=== PATIENT | male | born 1995 | race Caucasian/White ===

== ENCOUNTER 2016-12-28 00:04 | Emergency (ER) | payer SELFPAY ==
[2016-12-28 00:38] VITALS: O2SAT 100
[2016-12-28] MEDS ORDERED: Sodium Chloride 0.9% 1,000 ML IV ONE (01:00)
[2016-12-28] MEDS ORDERED: Sodium Chloride 0.9% 1,000 ML ONE (01:09)
--- NOTE | 2016-12-28 01:16 | C.PDOC ---
History Of Present Illness Patient is a 21 y/o male who presents to the ED with complaints of left-sided CP and a cough with occasional sputum for the last two days. 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 Patient denies fever or SOB. No other physical complaints at this time. Chief Complaint (Nursing): Chest Pain History Per: Patient Onset/Duration Of Symptoms: Days (x2 days) Current Symptoms Are (Timing): Worse Associated Symptoms: Nausea Recent travel outside of the [place]: No Additional History Per: Patient Past Medical History Reviewed: Historical Data, Nursing Documentation, Vital Signs Vital Signs: Last Vital Signs Temp 98.4 F 12/28/16 00:30 Pulse 93 H 12/28/16 01:52 Resp 15 12/28/16 01:52 BP 133/87 12/28/16 01:52 Pulse Ox 100 12/28/16 02:51 - Medical History PMH: Asthma Surgical History: Tonsillectomy - [facility] Procedures TETANUS TOXOID ADMINIST (11/28/13) Family History: States: Unknown Family Hx - Social History Hx Tobacco Use: Yes Hx Alcohol Use: Yes Hx Substance Use: No - Immunization History Hx Tetanus Toxoid Vaccination: No Hx Influenza Vaccination: No Hx Pneumococcal Vaccination: No Review Of Systems Constitutional: Negative for: Fever Cardiovascular: Positive for: Chest Pain (left sided), Light Headedness Respiratory: Positive for: Cough (occasional sputum). Negative for: Shortness of Breath Gastrointestinal: Positive for: Nausea, Vomiting (x1 ENTERTAINMENT PRODUCTION PROFESSIONAL) Physical Exam - Physical Exam Appears: Well, Non-toxic, No Acute Distress Skin: Normal Color, Warm, Dry Head: Atraumatic, Normacephalic Oral Mucosa: Moist Chest: Symmetrical, Tenderness (left side chest wall) Cardiovascular: Rhythm Regular, No Murmur Respiratory: Normal Breath Sounds, No Rales, No Rhonchi, No Wheezing Neurological/Psych: Oriented x3, Normal Speech, Normal Cognition, Other (no focal deficits) ED Course And Treatment - Laboratory Results Result Diagrams: 12/28/16 01:10 12/28/16 01:10 ECG: Interpreted By Me, Viewed By Me ECG Rhythm: Sinus Rhythm ECG Interpretation: Normal, No Acute Changes Interpretation Of ECG: NSR, no acute changes, borderline tracings. O2 Sat by Pulse Oximetry: 100 (room air) Pulse Ox Interpretation: Normal - Radiology CXR: Interpreted by Me, Viewed By Me CXR Interpretation: Yes: No Acute Disease, Other (normal chest film). No: Infiltrates Progress Note: Plan: EKG and CXR ordered; Toradol and IV fluids administered. Disposition Counseled Patient/Family Regarding: Diagnosis - Disposition Referrals: [facility] [Outside] Disposition Time: 02:49 Condition: STABLE Prescriptions: Naproxen 375 mg PO TIDPC #20 tablet Instructions: Chest Wall Pain (ED) Forms: [employer] (Filipino) - POA Present On Arrival: None - Clinical Impression Clinical Impression: Chest wall pain - Scribe Statement The provider has reviewed the documentation as recorded by the Scribe Letty Hansen All medical record entries made by the Scribe were at my direction and personally dictated by me. I have reviewed the chart and agree that the record accurately reflects my personal performance of the history, physical exam, medical decision making, and the department course for this patient. I have also personally directed, reviewed, and agree with the discharge instructions and disposition.
[2016-12-28 01:22] LABS: BASO # 0.1 K/uL (0.0-0.2); BASO % 0.8 % (0.0-2.0); EOS # 0.1 K/uL (0.0-0.7); EOS % 0.7 % (0.0-4.0); HEMATOCRIT 46.5 % (35.0-51.0); LYMPH # 2.4 K/uL (1.0-4.3); LYMPH % 26.4 % (20.0-40.0); MEAN CELL VOLUME 83.5 fL (80.0-94.0); MEAN CORPUSCULAR HGB CONC 33.5 g/dL (33.0-37.0); MEAN PLATELET VOLUME 7.7 fL (7.2-11.7); MONO # 0.7 K/uL (0.0-0.8); MONO % 7.5 % (0.0-10.0); NRBC % 0.1 % (0.0-2.0); RED CELL DISTRIBUTION WIDTH 13.4 % (11.5-14.5); WHITE BLOOD COUNT 9.1 K/uL (4.8-10.8)
[2016-12-28 01:25] LABS: CHLORIDE 97 mmol/L (98-107); POTASSIUM 3.6 mmol/L (3.6-5.2); SODIUM 138 mmol/L (132-148)
[2016-12-28 01:27] LABS: GFR AFRICAN-AMERICAN > 60
[2016-12-28 01:28] LABS: ALB/GLOB RATIO 1.2 (1.0-2.1); ALKALINE PHOSPHATASE 53 U/L (38-126); ALT/SGPT 52 U/L (21-72); AST/SGOT 34 U/L (17-59); BILIRUBIN,TOTAL 0.6 mg/dL (0.2-1.3); BLOOD UREA NITROGEN 10 mg/dL (9-20); CARBON DIOXIDE 28 mmol/L (22-30); GLUCOSE,RANDOM 85 mg/dL (75-110); TOTAL PROTEIN 8.2 g/dL (6.3-8.3)
[2016-12-28 01:29] LABS: CALCIUM 9.1 mg/dl (8.6-10.4)
[2016-12-28 03:06] VITALS: BP 133/86; PULSE 79; RESP 12; TEMP 98.9
--- NOTE | 2016-12-28 08:50 | RAD ---
HISTORY: chest pain COMPARISON: 06/21/2012 TECHNIQUE: Chest PA and lateral FINDINGS: LUNGS: No focal infiltrate or effusion. Patchy increased markings at the lung bases ; right greater than left likely represents prominent vasculature. PLEURA: No significant pleural effusion identified. No pneumothorax apparent. CARDIOVASCULAR: Normal. OSSEOUS STRUCTURES: No significant abnormalities. VISUALIZED UPPER ABDOMEN: Normal. OTHER FINDINGS: None. IMPRESSION: No focal infiltrate or effusion. Patchy increased markings at the lung bases ; right greater than left likely represents prominent vasculature.
--- NOTE | 2016-12-31 18:45 | CARD ---
APPROVED REPORT EKG Measurement Heart [id number] <Conclusion> Normal sinus rhythm Possible Left atrial enlargement Borderline ECG
== END 2016-12-28 03:08 | disposition home or self-care (01) ==
LOC: C.ER 00:04
DX: R07.89 Other chest pain (principal)
CPT/HCPCS: 71020; 80053; 84484; 85025; 85378; 93005; 96374; 99285; J1885; J7040

== ENCOUNTER 2018-06-09 21:59 | Emergency (ER) | payer OTHER ==
[2018-06-09 22:10] VITALS: O2SAT 99
--- NOTE | 2018-06-09 22:33 | C.PDOC ---
History Of Present Illness 23 year old male presents to the ED for evaluation of mid-sternal chest pain which began around one hour prior to arrival. Patient describes his chest pain as a stabbing sensation that is worse with movement of his arm and with pressing down on his chest. Patient states the chest pain has been intermittent for the past 5 moths. Patient also complains of a headache which began one week ago, associated with sinus congestion which began 3 days ago. Patient denies fever, chills, neck stiffness, shortness of breath, denies sudden onset of headache, denies worst headache of life, or extremity numbness/tingling at this time. <Moi Palafox - Last Filed: 06/10/18 00:41> History Per: Patient History/Exam Limitations: no limitations Onset/Duration Of Symptoms: Days Current Symptoms Are (Timing): Still Present Quality: "Pain" <Moi Palafox - Last Filed: 06/10/18 00:41> <Luann Vickers - Last Filed: 06/10/18 01:49> Time Seen by Provider: 06/09/18 22:33 Chief Complaint (Nursing): Headache Past Medical History Reviewed: Historical Data, Nursing Documentation, Vital Signs Vital Signs: Last Vital Signs Temp 98.3 F 06/09/18 22:08 Pulse 110 H 06/09/18 22:08 Resp 16 06/09/18 22:08 BP 131/86 06/09/18 22:08 Pulse Ox 99 06/09/18 22:08 - Medical History PMH: Asthma Surgical History: Tonsillectomy - [facility] Procedures TETANUS TOXOID ADMINIST (11/28/13) Family History: States: Unknown Family Hx - Social History Hx Tobacco Use: Yes Hx Alcohol Use: Yes Hx Substance Use: No - Immunization History Hx Tetanus Toxoid Vaccination: No Hx Influenza Vaccination: No Hx Pneumococcal Vaccination: No <Moi Palafox - Last Filed: 06/10/18 00:41> Vital Signs: Last Vital Signs Temp 98.1 F 06/09/18 23:37 Pulse 94 H 06/09/18 23:37 Resp 20 06/09/18 23:37 BP 131/75 06/09/18 23:37 Pulse Ox 99 06/10/18 00:42 - [facility] Procedures TETANUS TOXOID ADMINIST (11/28/13) <Luann Vickers - Last Filed: 06/10/18 01:49> Review Of Systems Constitutional: Negative for: Fever, Chills Cardiovascular: Positive for: Chest Pain Respiratory: Negative for: Shortness of Breath Neurological: Positive for: Headache. Negative for: Weakness, Numbness <Moi Palafox - Last Filed: 06/10/18 00:41> Physical Exam - Physical Exam Appears: Non-toxic, No Acute Distress Skin: Normal Color, Warm, Dry Head: Atraumatic, Normacephalic Eye(s): bilateral: Normal Inspection Oral Mucosa: Moist Neck: Supple, Other (no meningeal signs ) Chest: Symmetrical, No Deformity, No Tenderness Cardiovascular: Rhythm Regular, No Murmur Respiratory: Normal Breath Sounds, No Rales, No Rhonchi, No Wheezing Extremity: Normal ROM, Capillary Refill (less than 2 seconds ) Neurological/Psych: Oriented x3, Normal Speech, Normal Cognition, Other (no focal deficits ) <VivienneMoi Last Filed: 06/10/18 00:41> ED Course And Treatment - Laboratory Results Result Diagrams: 06/09/18 23:31 06/09/18 23:31 O2 Sat by Pulse Oximetry: 99 (on RA) Pulse Ox Interpretation: Normal <VivienneMoi - Last Filed: 06/10/18 00:41> - Laboratory Results Result Diagrams: 06/09/18 23:31 06/09/18 23:31 Lab Results: Total Bilirubin 0.3 mg/dL (0.2-1.3) 06/09/18 23:31 AST 47 U/L (17-59) 06/09/18 23:31 ALT 50 U/L (21-72) 06/09/18 23:31 Alkaline Phosphatase 64 U/L (38-126) 06/09/18 23:31 Total Protein 7.4 g/dL (6.3-8.3) 06/09/18 23:31 Albumin 4.4 g/dL (3.5-5.0) 06/09/18 23:31 Globulin 3.0 gm/dL (2.2-3.9) 06/09/18 23:31 Albumin/Globulin Ratio 1.5 (1.0-2.1) 06/09/18 23:31 <Luann Vickers - Last Filed: 03/25/19 01:49> Medical Decision Making Medical Decision Making: Progress: Bloodwork, CT Head, CXR, and EKG ordered and reviewed. Motrin PO given. EK, sinus tachy, no stemi 0100 CXR unremarkable, labs unremarkable signed out to DR. Vickers pending CT results <Moi Palafox - Last Filed: 06/10/18 00:41> Disposition <Moi Palafox - Last Filed: 06/10/18 00:41> Counseled Patient/Family Regarding: Studies Performed, Diagnosis, Need For Followup - Disposition Disposition Time: 01:48 <Luann Vickers - Last Filed: 06/10/18 01:49> - Disposition Referrals: Teo Hardy MD [Medical Doctor] - Disposition: HOME/ ROUTINE Condition: STABLE Additional Instructions: LUCRECIA RIOS, thank you for letting us take care of you today. The [facility] medical care you received today was directed at your acute symptoms. If you were prescribed any medication, please fill it and take as directed. It may take several days for your symptoms to resolve. Return to the Emergency Department if your symptoms worsen, do not improve, or if you have any other problems. Please contact your doctor for a follow up appointment in 1-2 days. Bring any paperwork you were given at discharge with you along with any medications you are taking to your follow up visit. Our treatment cannot replace ongoing medical care by a primary care provider outside of the emergency department. Thank you for allowing the [facility] team to be part of your care today. If you had an X-Ray or CT scan: A Radiologist will review the ED reading if any change in treatment is needed we will contact you. If you had a blood, urine, or wound culture: It will take several days for the results, if any change in treatment is needed we will contact you. If you had an STI test: It will take 48 hours for the results. Please call after 1 week if you have not heard back. Instructions: Headache, Adult (DC) Forms: [employer] (Pashto), General Discharge Instructions - Clinical Impression Clinical Impression: Headache - Scribe Statement The provider has reviewed the documentation as recorded by the Scribe (Adwoa Stout) Provider Attestation: All medical record entries made by the Scribe were at my direction and personally dictated by me. I have reviewed the chart and agree that the record accurately reflects my personal performance of the history, physical exam, medical decision making, and the department course for this patient. I have also personally directed, reviewed, and agree with the discharge instructions and disposition. <Moi Palafox - Last Filed: 06/10/18 00:41>
[2018-06-09 23:34] LABS: BASO # 0.1 K/uL (0.0-0.2); BASO % 0.8 % (0.0-2.0); EOS # 0.1 K/uL (0.0-0.7); EOS % 0.9 % (0.0-4.0); HEMOGLOBIN 14.9 g/dL (12.0-18.0); LYMPH # 2.2 K/uL (1.0-4.3); LYMPH % 34.5 % (20.0-40.0); MEAN CELL VOLUME 83.5 fL (80.0-94.0); MEAN CORPUSCULAR HGB CONC 33.6 g/dL (33.0-37.0); MONO # 0.6 K/uL (0.0-0.8); MONO % 9.6 % (0.0-10.0); NEUT # 3.5 K/uL (1.8-7.0); NEUT % 54.2 % (50.0-75.0); NRBC % 0.1 % (0.0-2.0); RBC 5.33 Mil/uL (4.40-5.90); RED CELL DISTRIBUTION WIDTH 12.8 % (11.5-14.5); WHITE BLOOD COUNT 6.4 K/uL (4.8-10.8)
[2018-06-09 23:38] VITALS: BP 131/75; PULSE 94; RESP 20; TEMP 98.1
[2018-06-09 23:46] LABS: ALB/GLOB RATIO 1.5 (1.0-2.1); ALBUMIN 4.4 g/dL (3.5-5.0); ALT/SGPT 50 U/L (21-72); AST/SGOT 47 U/L (17-59); BLOOD UREA NITROGEN 18 mg/dL (9-20); GFR NON-AFRICAN AMERICAN > 60
--- NOTE | 2018-06-10 08:48 | RAD ---
Date of service: 06/09/2018 HISTORY: cp COMPARISON: Comparison chest dated 12/28/2016. TECHNIQUE: Chest PA and lateral FINDINGS: LUNGS: No active pulmonary disease. PLEURA: No significant pleural effusion identified. No pneumothorax apparent. CARDIOVASCULAR: No aortic atherosclerotic calcification present. Normal cardiac size. No pulmonary vascular congestion. OSSEOUS STRUCTURES: No significant abnormalities. VISUALIZED UPPER ABDOMEN: Normal. OTHER FINDINGS: None. IMPRESSION: No active disease.
--- NOTE | 2018-06-10 09:28 | CT ---
Date of service: 06/10/2018 PROCEDURE: CT HEAD WITHOUT CONTRAST. HISTORY: Headache COMPARISON: None available. TECHNIQUE: Axial computed tomography images were obtained through the head/brain without intravenous contrast. Radiation dose: Total exam DLP = 1169.54 mGy-cm. This CT exam was performed using one or more of the following dose reduction techniques: Automated exposure control, adjustment of the mA and/or kV according to patient size, and/or use of iterative reconstruction technique. FINDINGS: HEMORRHAGE: No intracranial hemorrhage. BRAIN: No mass effect or edema. No atrophy or chronic microvascular ischemic changes. VENTRICLES: No obstructive hydrocephalus. CALVARIUM: Unremarkable. PARANASAL SINUSES: There is mild-moderate mucosal thickening within the ethmoid air complex extending superiorly into the frontal sinus. There is also mild mucosal thickening right maxillary antrum and minimal mucosal thickening left maxillary antrum tiny fluid level left maxillary antrum not excluded MASTOID AIR CELLS: Unremarkable as visualized. No inflammatory changes. OTHER FINDINGS: None. IMPRESSION: No acute intracranial hemorrhage. Mucoperiosteal inflammatory changes within the aforementioned paranasal sinuses as detailed above
== END 2018-06-10 02:06 | disposition home or self-care (01) ==
LOC: C.ER 21:59
DX: R51 Headache (principal)

== ENCOUNTER 2018-06-14 00:37 | Emergency (ER) | payer OTHER ==
--- NOTE | 2018-06-14 00:56 | C.PDOC ---
History Of Present Illness 23 year old male presents to the ED for evaluation of chest pain and left shoulder pain which have been intermittent for around 5 months. Patient was evaluated in this ED for similar complaint 5 days ago. Patient was instructed to follow up with his PMD. 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 He returns to the ED today because his pain has persisted. He denies fever, chills, headache, sinus congestion, known trauma/injury, extremity numbness/weakness. Time Seen by Provider: 06/14/18 00:47 Chief Complaint (Nursing): Upper Extremity Problem/Injury History Per: Patient History/Exam Limitations: no limitations Onset/Duration Of Symptoms: Intermittent Episodes, Persistent, Other (5 months ) Quality: "Pain" Additional History Per: Patient Past Medical History Reviewed: Historical Data, Nursing Documentation, Vital Signs Vital Signs: Last Vital Signs Temp 99.1 F 06/14/18 00:41 Pulse 87 06/14/18 00:41 Resp BP 152/80 H 06/14/18 00:41 Pulse Ox 95 06/14/18 00:41 - Medical History PMH: Asthma Surgical History: Tonsillectomy - [facility] Procedures TETANUS TOXOID ADMINIST (11/28/13) Family History: States: Unknown Family Hx - Social History Hx Tobacco Use: Yes Hx Alcohol Use: Yes Hx Substance Use: No - Immunization History Hx Tetanus Toxoid Vaccination: No Hx Influenza Vaccination: No Hx Pneumococcal Vaccination: No Review Of Systems Constitutional: Negative for: Fever, Chills, Sweats, Weakness, Malaise, Weight loss Eyes: Negative for: Pain, Vision Change, Eyelid Inflammation ENT: Negative for: Ear Pain, Ear Discharge, Nose Pain, Nose Congestion, Mouth Pain, Throat Pain, Throat Swelling, Other (sinus congestion) Cardiovascular: Positive for: Chest Pain. Negative for: Palpitations, Orthopn ea, Edema, Light Headedness Respiratory: Negative for: Cough, Shortness of Breath, Hemoptysis, SOB with Excertion, Pleuritic Pain, Wheezing Gastrointestinal: Negative for: Nausea, Vomiting, Abdominal Pain, Diarrhea, Constipation, Melena, Hematochezia, Hematemesis Genitourinary: Negative for: Dysuria, Frequency, Incontinence, Hematuria, Penile Discharge, Scrotal Pain, Rash Musculoskeletal: Positive for: Shoulder Pain (left, atraumatic ). Negative for: Neck Pain, Back Pain Neurological: Negative for: Weakness, Numbness, Headache Physical Exam - Physical Exam Appears: Well, Non-toxic, No Acute Distress Skin: Normal Color, Warm, Dry Head: Atraumatic, Normacephalic Eye(s): bilateral: Normal Inspection, PERRL, EOMI Ear(s): Bilateral: Normal Nose: Normal Oral Mucosa: Moist Tongue: Normal Appearing Lips: Normal Appearing Gingiva: Normal Appearing Throat: Normal, No Erythema, No Exudate Neck: Normal ROM, Supple, Other (no meningeal signs) Lymphatic: Normal Exam, No Adenopathy Chest: Symmetrical, No Deformity, No Tenderness Cardiovascular: Rhythm Regular, No Murmur Respiratory: Normal Breath Sounds, No Decreased Breath Sounds, No Accessory Muscle Use, No Rales, No Rhonchi, No Stridor, No Wheezing, No Plerual Rub Gastrointestinal/Abdominal: Normal Exam, Soft, No Tenderness, No Guarding, No Rebound Back: Normal Inspection, No CVA Tenderness, No Vertebral Tenderness Extremity: Normal ROM, No Tenderness, Capillary Refill (less than 2 seconds ), No Deformity, No Swelling Pulses: Right Radial: Normal, Right Femoral: Normal Neurological/Psych: Oriented x3, Normal Speech, Normal Cognition, Normal Motor, Normal Sensation Gait: Steady ED Course And Treatment - Laboratory Results Result Diagrams: 06/14/18 01:20 06/14/18 01:20 O2 Sat by Pulse Oximetry: 95 (on RA) Pulse Ox Interpretation: Normal Medical Decision Making Medical Decision Making: Impression 23 year old male with chest pain and left shoulder pain. Seen previously for similiar complaint. 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 No fall or trauma. Intermittent likely MSK pain x5 months seen multiple times. Likely MSK given pt notes that he has been lifting more weights recently. Fully n/v intact in b/l UE Differential diagnoses include but are not limited to: PE vs chest wall pain Progress: EKG 80, NSR, No stemi labs, CXR unremarkable Pending CTA 1643 imaging unremarkable pt notes improved pain clear for d/c home with return indications remains n/v intact in b/l UE endorsed to pt to take otc motrin at home. he is agreeable. Disposition - Disposition Referrals: [facility] [Outside] [facility] [Outside] [facility] [Outside] Edgar Babin MD [Staff Provider] - Disposition: HOME/ ROUTINE Disposition Time: 04:45 Condition: STABLE Additional Instructions: LUCRECIA RIOS, thank you for letting us take care of you today. Your provider was Moi Palafox and you were treated for SHOULDER PAIN. The emergency medical care you received today was directed at your acute symptoms. If you were prescribed any medication, please fill it and take as directed. It may take several days for your symptoms to resolve. Return to the Emergency Department if your symptoms worsen, do not improve, or if you have any other problems. Please contact your doctor or call one of the physicians/clinics you have been referred to that are listed on the Patient Visit Information form that is included in your discharge packet. Bring any paperwork you were given at discharge with you along with any medications you are taking to your follow up visit. Our treatment cannot replace ongoing medical care by a primary care provider outside of the emergency department. Thank you for allowing the [facility] team to be part of your care today. If you had an X-Ray or CT scan: A Radiologist will review the ED reading if any change in treatment is needed we will contact you. If you had a blood, urine, or wound culture: It will take several days for the results, if any change in treatment is needed we will contact you. If you had an STI test: It will take 48 hours for the results. Please call after 1 week if you have not heard back. Instructions: Chest Pain (DC) Forms: [employer] (Montenegrin) - Clinical Impression Clinical Impression: Chest pain - Scribe Statement The provider has reviewed the documentation as recorded by the Scribe (Adwoa Stout) Provider Attestation: All medical record entries made by the Scribe were at my direction and personally dictated by me. I have reviewed the chart and agree that the record accurately reflects my personal performance of the history, physical exam, medical decision making, and the department course for this patient. I have also personally directed, reviewed, and agree with the discharge instructions and disposition.
[2018-06-14] MEDS ORDERED: Iodixanol 320 MG/ML 100 ML BOTTLE IV ONE (01:07)
[2018-06-14 01:32] LABS: BASO % 0.7 % (0.0-2.0); EOS % 0.8 % (0.0-4.0); HEMOGLOBIN 15.6 g/dL (12.0-18.0); LYMPH # 1.8 K/uL (1.0-4.3); MEAN CELL VOLUME 83.6 fL (80.0-94.0); MEAN CORPUSCULAR HEMOGLOBIN 28.2 pg (27.0-31.0); MEAN CORPUSCULAR HGB CONC 33.7 g/dL (33.0-37.0); MEAN PLATELET VOLUME 7.2 fL (7.2-11.7); MONO # 0.4 K/uL (0.0-0.8); MONO % 7.3 % (0.0-10.0); NEUT # 3.7 K/uL (1.8-7.0); NEUT % 61.2 % (50.0-75.0); RBC 5.54 Mil/uL (4.40-5.90); RED CELL DISTRIBUTION WIDTH 12.9 % (11.5-14.5); WHITE BLOOD COUNT 6.1 K/uL (4.8-10.8)
[2018-06-14 01:52] LABS: ALB/GLOB RATIO 1.6 (1.0-2.1); ALBUMIN 4.7 g/dL (3.5-5.0); ALT/SGPT 36 U/L (21-72); AST/SGOT 44 U/L (17-59); BLOOD UREA NITROGEN 13 mg/dL (9-20); CALCIUM 9.3 mg/dl (8.6-10.4); GFR NON-AFRICAN AMERICAN > 60
[2018-06-14] MEDS ORDERED: Iodixanol 320 mg/ml 150 ml Bottle IV ONE ×2 (03:17→03:41)
[2018-06-14 04:58] VITALS: BP 140/80; PULSE 82; RESP 20; TEMP 99; O2SAT 98
--- NOTE | 2018-06-14 09:59 | CT ---
Date of service: 06/14/2018 PROCEDURE: CT Chest with contrast (Pulmonary Angiogram) HISTORY: cp COMPARISON: None available. TECHNIQUE: Axial computed tomography images were obtained of the chest in the pulmonary arterial phase of enhancement. Coronal and sagittal reformatted images were created and reviewed. Intravenous contrast dose: 100 mL of Visipaque 320 intravenously Radiation dose: Total exam DLP = 1236.33 mGy-cm. This CT exam was performed using one or more of the following dose reduction techniques: Automated exposure control, adjustment of the mA and/or kV according to patient size, and/or use of iterative reconstruction technique. FINDINGS: PULMONARY ARTERIES: Suboptimal study. No pulmonary embolism. AORTA: No acute findings. No thoracic aortic aneurysm. No aortic atherosclerotic calcification or mural plaque present. LUNGS: Unremarkable. No nodule, mass or pulmonary consolidation. PLEURAL SPACES: Unremarkable. No effusion or pneumothorax. HEART: Unremarkable. No cardiomegaly. No significant pericardial effusion. LYMPH NODES: No lymphadenopathy. BONES, CHEST WALL: Unremarkable. No fracture or destructive lesion OTHER FINDINGS: There is partially imaged focal low attenuation at the caudate liver lobe noted new compared to the prior CT dated 06/01/2012. Clinically warranted further assessment by ultrasound is suggested. IMPRESSION: Suboptimal study, no evidence of central pulmonary embolus. No evidence of acute pulmonary disease. Partially imaged low-attenuation focus noted at liver caudate lobe of uncertain etiology. If clinically warranted further assessment by ultrasound is suggested. Preliminary report was submitted by [facility] Radiology contains concordant findings.
--- NOTE | 2018-06-14 10:23 | RAD ---
Date of service: 06/14/2018 PROCEDURE: Radiographs of the Left Shoulder HISTORY: l shoulder pain COMPARISON: No prior. TECHNIQUE: 3 views obtained. FINDINGS: BONES: Normal. No fracture. JOINTS: Normal. Glenohumeral and acromioclavicular joints preserved. No osteoarthritis. SOFT TISSUES: Normal. OTHER FINDINGS: None. IMPRESSION: Normal radiographs of the left shoulder.
--- NOTE | 2018-06-17 15:01 | CARD ---
APPROVED REPORT Date of service: 06/14/2018 EKG Measurement Heart [id number] <Conclusion> Normal sinus rhythm Normal ECG
== END 2018-06-14 04:56 | disposition home or self-care (01) ==
LOC: C.ER 00:37
DX: R07.9 Chest pain, unspecified (principal)
CPT/HCPCS: 71275; 73030; 80053; 84484; 85025; 93005; 96374; 99283; J1885; Q9967

== ENCOUNTER 2018-06-30 16:02 | Emergency (ER) | payer OTHER ==
[2018-06-30] MEDS ORDERED: Sodium Chloride 0.9% 1,000 ML IV ONE (16:26)
--- NOTE | 2018-06-30 16:30 | C.PDOC ---
History Of Present Illness CC: Palpitations. Patient presented with palpiations since thi morning, heaviness in L. chest and arm. Was drinking ETOH last night, no drug use. Time Seen by Provider: 06/30/18 16:19 Chief Complaint (Nursing): Palpitations History Per: Patient History/Exam Limitations: no limitations Onset/Duration Of Symptoms: Hrs (5) Current Symptoms Are (Timing): Still Present Severity: Mild Pain Scale Rating Of: 4 Quality: Tightness Associated Symptoms: denies: Dyspnea, Diaphoresis, Syncope Exacerbating Factors: None Alleviating Factors: None Past Medical History Reviewed: Historical Data, Nursing Documentation, Vital Signs Vital Signs: Last Vital Signs Temp 99.5 F 06/30/18 16:08 Pulse 108 H 06/30/18 16:08 Resp 20 06/30/18 16:08 BP 150/88 06/30/18 16:08 Pulse Ox 100 06/30/18 16:08 - Medical History PMH: Asthma Surgical History: Tonsillectomy - [facility] Procedures TETANUS TOXOID ADMINIST (11/28/13) Family History: States: No Known Family Hx - Social History Hx Tobacco Use: Yes Hx Alcohol Use: Yes Hx Substance Use: No - Immunization History Hx Tetanus Toxoid Vaccination: No Hx Influenza Vaccination: No Hx Pneumococcal Vaccination: No Review Of Systems Except As Marked, All Systems Reviewed And Found Negative. Cardiovascular: Positive for: Chest Pain, Palpitations. Negative for: Orthopnea Respiratory: Negative for: Shortness of Breath Physical Exam - Physical Exam Appears: Well Skin: Normal Color Head: Atraumatic Eye(s): bilateral: Normal Inspection, PERRL, EOMI Nose: Normal Oral Mucosa: Moist Tongue: Normal Appearing Lips: Normal Appearing Teeth: Normal Dentition Throat: Normal Neck: Normal Lymphatic: Deferred Chest: Symmetrical Cardiovascular: Rhythm Regular, No Edema Gastrointestinal/Abdominal: Normal Exam, Soft, No Tenderness, No Distention Extremity: Normal ROM, No Pedal Edema ED Course And Treatment - Laboratory Results Result Diagrams: 06/30/18 16:54 06/30/18 16:54 O2 Sat by Pulse Oximetry: 100 (RA) Pulse Ox Interpretation: Normal Medical Decision Making Medical Decision Making: Plan: --EKG --Labs --IV fluids Disposition Counseled Patient/Family Regarding: Diagnosis, Need For Followup - Disposition Disposition: HOME/ ROUTINE Disposition Time: 18:16 Condition: STABLE Instructions: Chest Pain, Palpitations Forms: [facility] (Tajik), General Discharge Instructions, Work Excuse - POA Present On Arrival: None - Clinical Impression Clinical Impression: Chest pain, Palpitations
[2018-06-30 16:58] LABS: BASO # 0.1 K/uL (0.0-0.2); BASO % 0.8 % (0.0-2.0); EOS % 0.5 % (0.0-4.0); HEMOGLOBIN 15.1 g/dL (12.0-18.0); LYMPH # 2.3 K/uL (1.0-4.3); MEAN CELL VOLUME 83.5 fL (80.0-94.0); MEAN CORPUSCULAR HEMOGLOBIN 27.9 pg (27.0-31.0); MEAN CORPUSCULAR HGB CONC 33.4 g/dL (33.0-37.0); MEAN PLATELET VOLUME 7.2 fL (7.2-11.7); MONO # 0.6 K/uL (0.0-0.8); MONO % 7.2 % (0.0-10.0); NEUT # 5.1 K/uL (1.8-7.0); NEUT % 63.5 % (50.0-75.0); RBC 5.43 Mil/uL (4.40-5.90); RED CELL DISTRIBUTION WIDTH 12.9 % (11.5-14.5); WHITE BLOOD COUNT 8.1 K/uL (4.8-10.8)
[2018-06-30 17:12] LABS: ALB/GLOB RATIO 1.5 (1.0-2.1); ALBUMIN 4.5 g/dL (3.5-5.0); ALT/SGPT 52 U/L (21-72); AST/SGOT 59 U/L (17-59); BLOOD UREA NITROGEN 11 mg/dL (9-20); CALCIUM 9.5 mg/dl (8.6-10.4); GFR NON-AFRICAN AMERICAN > 60
[2018-06-30 17:32] LABS: BARBITURATES, UR NEGATIVE (NEGATIVE); BENZODIAZEPINES, UR NEGATIVE (NEGATIVE); OPIATES, UR NEGATIVE (NEGATIVE); PHENCYCLIDINE, UR NEGATIVE (NEGATIVE)
[2018-06-30 18:35] VITALS: BP 130/90; PULSE 90; RESP 18; TEMP 98; O2SAT 96
--- NOTE | 2018-07-01 08:38 | RAD ---
Chest x-ray single frontal view HISTORY: Chest pain. COMPARISON: None available. FINDINGS: No focal infiltrate or effusion. Heart size within normal limits. IMPRESSION: No focal infiltrate or effusion.
--- NOTE | 2018-07-01 15:03 | CARD ---
APPROVED REPORT Date of service: 06/30/2018 EKG Measurement Heart [id number] <Conclusion> Sinus tachycardia Minimal voltage criteria for LVH, may be normal variant Borderline ECG
== END 2018-06-30 18:35 | disposition home or self-care (01) ==
LOC: C.ER 16:02
DX: R00.2 Palpitations (principal); R07.9 Chest pain, unspecified
CPT/HCPCS: 71045; 80053; 80324; 80345; 80346; 80349; 80353; 80358; 80361; 83992; 84443; 84484; 85025; 85378; 93005; 96360; 99285; J7030

== ENCOUNTER 2018-07-09 17:39 | Emergency (ER) | payer OTHER | END 2018-07-09 19:44 | disposition home or self-care (01) | LOC: C.ER 17:39 ==